=== PATIENT | male | born 1970 | race Caucasian/White ===

== ENCOUNTER 2023-08-13 11:53 | Emergency (ER) | payer OTHER, SELFPAY ==
[2023-08-13 11:53] VITALS: BP 127/78; PULSE 57; RESP 16; TEMP 36.3; O2SAT 100
--- NOTE | 2023-08-13 12:06 | EDS_ITS ---
HPI History of Present Illness Chief Complaint: Lower Extremity Injury Detail of Chief Complaint: Right knee injury Informant: patient Narrative Narrative: Patient presents with injury to the right knee that occurred today. Injury occurred while at work about 30 minutes ago. Patient states that he stepped with his right leg onto a small step and his ankle rolled and he fell injuring his right knee. Denies striking his head or loss consciousness. Denies any other injuries. He is unable to bear weight. PFSH PFSH Home Medications hydrocodone-acetaminophen 5-325mg 5mg-325mg 1 tab PO Q4H PRN PRN Pain 2 days #10 TABLETS 08/13/23 [Rx Last Taken Unknown] Allergy/AdvReac Type Severity Reaction Status Date / Time Fish Containing Products AdvReac Itching Verified 08/13/23 11:55 latex AdvReac Itching Verified 08/13/23 11:55 Social History Smoking Status: Never smoker ROS ROS ED Review of Systems ROS Unobtainable: other Constitutional Constitutional ED: Reports lethargy; Denies chills, fever(s), sweats or weight loss Eyes Eyes: Denies blurry vision, change in vision or diplopia ENT ENT ED: Denies rhinorrhea or sore throat Cardiovascular Cardiovascular: Denies chest pain, orthopnea or racing heartbeat Respiratory/Chest Respiratory/Chest: Denies cough, dyspnea, dyspnea on exertion, orthopnea or sputum Gastrointestinal Gastrointestinal: Denies abdominal pain, diarrhea, nausea or vomiting Genitourinary Genitourinary ED: Denies dysuria, hematuria or urinary frequency Musculoskeletal Musculoskeletal: Denies arthralgias, back pain, myalgias or neck pain Integumentary Reports other Details: Right knee pain/injury ; Denies abscess, Abrasions or rash Neurologic Neurologic: Denies headache(s) or weakness Psychiatric Psychiatric: Denies anxiety, depression or suicidal thoughts Endocrine Endocrinology: Denies polydipsia, polyphagia or polyuria Hematologic/Lymphatic Hematologic/Lymphatic: Denies easy bleeding, easy bruising or lymphadenopathy Allergic/Immunologic Allergic/Immunologic ED: Denies mouth swelling, tongue swelling or urticaria EXAM Physical Exam Const Vital Signs: 08/13/23 11:53 08/13/23 13:53 08/13/23 14:44 Temperature 97.3 F L 97.8 F Temperature Source Temporal Pulse Rate 57 L 64 78 Respiratory Rate 16 14 16 Blood Pressure 127/78 H 134/78 H 132/66 H Blood Pressure Mean 94 96 88 Pulse Ox 100 97 97 Oxygen Delivery Method Room Air Room Air Positive well nourished and well developed General Appearance ED: well developed and NAD HEENT Reports TM's clear and moist mucous membranes normocephalic and atraumatic; Negative for trauma or tenderness Tympanic Membrane ED: Yes TM's clear Eyes PERRL and EOMs intact bilaterally General Eye ED: Negative for pale conjunctiva or scleral icterus Neck no lymphadenopathy, supple and no JVD General: Negative for tenderness Chest Wall inspection of chest normal and palpation of chest normal Chest: Negative for tenderness Resp normal respiratory effort and clear to auscultation bilaterally Effort and Inspection: Negative for respiratory distress or pain with movement Auscultation: Negative for rhonchi, wheezes or diminished lung sounds Cardio regular rate, regular rhythm, S1 normal heart sound, S2 normal heart sound and n o murmurs Peripheral Pulses: pulses 2+ throughout GI normal to inspection, nondistended, normoactive bowel sounds, soft to palpation, non-tender, non-distended and no masses Back/Spine no CVA tenderness and no thoracic nor lumbar tenderness Extremity normal to inspection Extremity Narrative: Right lower extremity-I do not appreciate any obvious ecchymosis or bruising to the knee. No significant effusion. He does seem to have a defect over the patellar tendon. Patient unable to raise the leg off the bed. Neurovascular intact distally. Mild diffuse tenderness about the medial and lateral joint lines. Patient unable to tolerate ligamentous exam due to pain. He has no tenderness over the ankle or foot. General Extremety ED: Negative for edema General Extremity: Negative for edema Neuro oriented x3, CN's II-XII intact bilaterally, no sensory deficits noted and gait normal Sensorium / Orientation: awake, alert, oriented to person, oriented to place and oriented to time Motor Exam: strength 5/5 throughout and strength abnormal Psych mental status grossly normal Skin no rashes or lesions noted and no wounds MDM MDM MDM Narrative Medical decision making narrative: Patient with injury to right knee. Clinically suspect patellar tendon rupture. X-rays of the right knee obtained did show a high riding patella with avulsion of inferior pole of patella noted. Case discussed with orthopedic surgeon on- call Dr. Gonzalez. I will place patient in knee immobilizer and given crutches and pain medication and he will need to follow-up with the office for possible surgical intervention. Radiography Diagnostic Testing: Clinical Impression(s) from Imaging Studies Knee X-Ray 08/13/23 12:20 IMPRESSION: High riding patella with findings suggestive of avulsion of the inferior aspect of the patella with the soft tissue swelling. Electronically Signed: Quintin Waldron MD at 12:56 EDT , 4 view x-rays of the right knee obtained interpreted by myself as high riding patella with avulsion of the inferior pole of patella. Radiology in agreement. Discharge Plan Triage Chief Complaint: Lower Extremity Injury ED Provider: Alessandro Quintero Dx/Rx/DC Orders Clinical Impression: Rupture of patellar tendon Instructions: ED Patella Fracture Prescriptions: New hydrocodone-acetaminophen [hydrocodone-acetaminophen] 5-325 mg tablet 1 tab PO Q4H PRN PRN (Reason: Pain) 2 Days Qty: 10 0RF Primary Care Provider: Care Physician,No Primary Referrals: Modesto Gonzalez DO [Med Staff - Active Staff] - 3-5 Days Care Physician,No Primary [Primary Care Provider] - Disposition Disposition: Home, Self Care Discharge Date/Time: 08/13/23 14:45
--- NOTE | 2023-08-13 12:20 | RAD_ITS ---
STUDY: X-RAY - RIGHT KNEE REASON FOR EXAM: Male, 53 years old. Knee pain following injury. TECHNIQUE: 4 view(s) of the knee. COMPARISON: None. FINDINGS: Normal visualized distal femur. Normal visualized proximal tibia and fibula. Normal proximal tibiofibular articulation. Normal medial femorotibial compartment. Normal lateral femorotibial compartment. The patella is displaced superiorly. Bony fragments are seen below the patella with overlying soft tissue swelling. Avulsion of the inferior portion of the patella should be ruled out. Soft tissue swelling. RAD/Knee 4 or More Views IMPRESSION: High riding patella with findings suggestive of avulsion of the inferior aspect of the patella with the soft tissue swelling. Electronically Signed: Quintin Waldron MD at 12:56 EDT ,
[2023-08-13 13:53] VITALS: BP 134/78; PULSE 64; RESP 14; O2SAT 97
[2023-08-13 14:44] VITALS: BP 132/66; PULSE 78; RESP 16; TEMP 36.6; O2SAT 97
== END 2023-08-13 14:45 | disposition home or self-care (01) ==
PROVIDERS: Emergency Provider Emergency Medicine; Visit Provider Emergency Medicine
DX: S76.111A Strain of right quadriceps muscle, fascia and tendon, initial encounter (principal); X58.XXXA Exposure to other specified factors, initial encounter; Y93.89 Activity, other specified; Y99.0 Civilian activity done for income or pay; Y92.89 Other specified places as the place of occurrence of the external cause
CPT/HCPCS: 73564; 99284